=== PATIENT | female | born 1960 | race Caucasian/White ===

== ENCOUNTER 2023-11-02 05:33 | Day surgery (SDC) | payer MEDICARE, OTHER ==
[~2023-11-02] VITALS: Ht 160 cm; Wt 59.1 kg
[2023-11-02] MEDS ORDERED: propofoL 50 ML IV ONE (07:22)
[2023-11-02] MEDS ORDERED: Lactated Ringer's 1,000 ML IV ONE ×2 (07:22→09:15)
[2023-11-02] MEDS ORDERED: BUPR150ER (08:53)
[2023-11-02] MEDS ORDERED: QUETIAPINE FUMA50 M4 (08:54)
[2023-11-02] MEDS ORDERED: DULO30 (08:54)
== END 2023-11-02 10:44 | disposition home or self-care (01) ==
LOC: ORSCSDS 05:33
PROVIDERS: Internal Medicine Gastroenterology
PROC: 0DBP8ZX Excision of Rectum, Via Natural or Artificial Opening Endoscopic, Diagnostic (ICD-10-PCS; principal; 2023-11-02 09:30)
DX: K62.5 Hemorrhage of anus and rectum (principal); K51.20 Ulcerative (chronic) proctitis without complications; R19.5 Other fecal abnormalities; Z87.19 Personal history of other diseases of the digestive system; R10.30 Lower abdominal pain, unspecified; F31.9 Bipolar disorder, unspecified; Z87.891 Personal history of nicotine dependence; Z79.899 Other long term (current) drug therapy
CPT/HCPCS: 88305; J2704; J7120